=== PATIENT | female | born 1935 ===

== ENCOUNTER 2017-09-27 11:33 | Emergency (ER) | payer OTHER ==
[~2017-09-27] VITALS: Ht 160 cm; Wt 68.0 kg
== END 2017-09-27 16:59 | disposition home or self-care (01) ==
LOC: ER 11:33
DX: S80.02XA Contusion of left knee, initial encounter (principal); S80.01XA Contusion of right knee, initial encounter; W18.39XA Other fall on same level, initial encounter; Y93.89 Activity, other specified; Y92.098 Other place in other non-institutional residence as the place of occurrence of the external cause; Y99.8 Other external cause status